=== PATIENT | female | born 1970 | race African-American/Black ===

== ENCOUNTER 2018-03-25 15:14 | Inpatient (IN) | payer OTHER ==
[~2018-03-25] VITALS: Ht 172.7 cm; Wt 127.9 kg
[~2018-03-25 15:14] MED LIST: ENAL5TAB20 PO; METO25TE PO; VICODIN PO
[2018-03-25 15:30] VITALS: BP 130/85
--- NOTE | 2018-03-25 15:32 | NUR ---
PT BROUGHT TO BED 11 AND EKG OBTAINED
[2018-03-25] MEDS ORDERED: MORPHINE SULFATE 4 MG/ML SYR IVP ONE (15:35)
[2018-03-25] MEDS ORDERED: NITROGLYCERIN 2% 1 GM PKT TP ONE (15:35)
[2018-03-25] MEDS ORDERED: ASPIRIN 325 MG TAB PO ONE (15:35)
--- NOTE | 2018-03-25 15:45 | NUR ---
PT C/O SOB AND FEELING OF ELEPHANT SITTING ON CHEST STARTING TODAY AT REST. 10/10 PAIN. PT HAS BEEN COUGH X 6 MOS. HX---HTN AND DM
[2018-03-25 15:55] LABS: BASOPHILS % (AUTO) 0.5 % (0.0-2.0); EOSINOPHILS # (AUTO) 0.2 K/uL (0-0.4); EOSINOPHILS % (AUTO) 4.8 % (0.0-4.0); HEMATOCRIT 40.8 % (36-48); HEMOGLOBIN 13.6 g/dL (12.0-16.0); LYMPHOCYTES # (AUTO) 0.9 K/uL (2.5-16.5); LYMPHOCYTES % (AUTO) 22.2 % (20.5-51.1); MEAN CORPUSCULAR HEMOGLOBIN 32 pg (27-31); MEAN CORPUSCULAR HGB CONC 33 g/dL (33-37); MEAN CORPUSCULAR VOLUME 95.2 fL (80-94); MONOCYTES # (AUTO) 0.2 K/uL (0.8-1.0); MONOCYTES % (AUTO) 5.2 % (1.7-9.3); NEUTROPHILS # (AUTO) 2.7 K/uL (1.8-7.7); NEUTROPHILS % (AUTO) 67.3 % (42.2-75.2); PLATELET COUNT (AUTO) 191 K/uL (140-450); RED BLOOD CELL COUNT(AUTO) 4.29 MIL/uL (4.20-5.40); RED CELL DISTRIBUTION WIDTH 12.6 % (11.6-13.7); WHITE BLOOD COUNT (AUTO) 4.1 K/uL (4.8-10.8)
[2018-03-25 16:04] LABS: ANION GAP 11.2 (8-16); CARBON DIOXIDE 29.3 mmol/L (21-32); CREATININE 0.8 mg/dL (0.6-1.3); POTASSIUM 3.5 mmol/L (3.5-5.1)
[2018-03-25 16:09] LABS: ALBUMIN 3.4 g/dL (3.4-5.0); TOTAL BILIRUBIN 0.4 mg/dL (0.0-1.0)
[2018-03-25 16:19] LABS: CHOL/HDL RATIO 2.7 (1-4.5)
--- NOTE | 2018-03-25 19:02 | NUR ---
pt taken off the unit via gurney for ct scan by eclectic doctor
--- NOTE | 2018-03-25 19:13 | NUR ---
REPORT GIVEN TO OSWALDO BUSTILLO
--- NOTE | 2018-03-25 19:26 | NUR ---
PT RETURNED FROM CT. NOTED WHEEZING NOTED THROUGHT WITH LABORED BREATHING SATS 94% ON 2LPM NC. ER MD MADE AWARE, AWAITING FOR ORDERS
[2018-03-25] MEDS ORDERED: ALBUTEROL 0.083% 2.5 MG/3 ML NEBU INH ONE (19:30)
[2018-03-25] MEDS ORDERED: ALBUTEROL SULFATE/IPRATROPIU 3 ML SOL IH ONE (19:45)
[2018-03-25] MEDS ORDERED: LEVOFLOXACIN 750 MG/D5W PREMIX 150 ML IV ONE (20:20)
--- NOTE | 2018-03-25 20:35 | NUR ---
PT REFUSES TO BE ADMITTED, DR GALLEGOS MADE AWARE. PT SIGNED AMA. PT REQUESTING TO STILL GET ANTIBIOTICS. LEVAQUIN CURRENTLY INFUSING.
--- NOTE | 2018-03-25 21:35 | NUR ---
PT STATES " I CAN STAY NOW, SOMEONE WILL TAKE CARE OF MY GRANDCHILDREN". DR GALLEGOS MADE AWARE
[2018-03-25] MEDS ORDERED: DOCUSATE SODIUM 100 MG GELCAP PO PRN (22:35)
[2018-03-25] MEDS ORDERED: ZOLPIDEM 5 MG TAB PO PRN (22:35)
[2018-03-25] MEDS ORDERED: ACETAMINOPHEN 325 MG TAB PO PRN (22:35)
[2018-03-25] MEDS ORDERED: ONDANSETRON 4 MG/2 ML VIAL IM/IVP PRN (22:35)
[2018-03-25] MEDS ORDERED: LORazepam 0.5 MG TAB PO PRN (22:35)
[2018-03-25 23:00] VITALS: BP 122/60
--- NOTE | 2018-03-25 23:00 | NUR ---
RECEIVED BEDSIDE REPORT FROM RN KENY, PATIENT AMBULATED FROM [facility] TO BEDSIDE, UNSTEADY GAIT, STATES SHE FEELS SOB. NOTED WHEEZING, CALL RT FOR BREATHING TX, PLACED PATIENT ON 2 L VIA NC, PLACED HOB AT 90 DEGREES, O2 SAT 90%, RR 22-26 LABORED AND DEEP. IV IN LEFT AC 20 G, SL, DRESSING INTACT, EXPLAINED PLAN OF CARE. UPDATED BOARD, CALL LIGHT WITHIN REACH, PLACED ON FALL PRECAUTIONS, BED ALARM ON. WILL CONTINUE TO MONITOR.
--- NOTE | 2018-03-25 23:00 | NUR ---
Patient will be admitted to care of SESAY. Admited to TELE . Will go to room 115A. Belongings list completed. Report to RAFAEL CHACON.
[2018-03-25] MEDS: ALBUTEROL SULFATE/IPRATROPIU 3 ML SOL IH PRN (23:09)
[2018-03-25 23:15] LABS: APPEARANCE,URINE CLEAR (CLEAR); BILIRUBIN,URINE NEGATIVE (NEGATIVE); BLOOD, URINE NEGATIVE (NEGATIVE); COLOR,URINE YELLOW (YELLOW); LEUKOCYTE ESTERASE ,URINE NEGATIVE (NEGATIVE); NITRITE, URINE NEGATIVE (NEGATIVE); UGLUCOSE NEGATIVE (NEGATIVE)
[2018-03-25 23:20] LABS: BARBITURATE, URINE NEG. ng/ml (NEG <=200); BENZODIAZEPINE, URINE NEG. ng/mL (NEG <=200); CANNABINOID, URINE NEG. ng/mL (NEG <=50); COCAINE, URINE POS. ng/mL (NEG <=300); OPIATE, URINE POS. ng/mL (NEG <=2000); PHENCYCLIDINE SCREEN,URINE NEG. ng/mL (NEG <=25)
[2018-03-25 23:21] LABS: FREE T4 (FREE THYROXINE) 1.13 ng/dL (0.76-1.46); MAGNESIUM 1.7 mg/dL (1.8-2.4); PHOSPHORUS 3.2 mg/dL (2.5-4.9); THYROID STIMULATING HORMONE 0.63 uIU/mL (0.34-3.74)
[2018-03-25] MEDS: NACL 0.9% 1,000 ML IV SCH (23:25)
--- NOTE | 2018-03-25 23:30 | NUR ---
MRSA SCREEN COLLECTED AND SENT TO LAB.
[2018-03-25] MEDS ORDERED: PROMETHAZINE DM 6.25/15MG-5ML ORASYR PO PRN (23:40)
[2018-03-25] MEDS ORDERED: FLUO20CA27 PO (23:59)
[2018-03-25] MEDS ORDERED: METF-988 PO (23:59)
[2018-03-25] MEDS ORDERED: QUET300T1 PO (23:59)
[2018-03-26] MEDS ORDERED: NICOTINE TRANSD SYS 21 MG/24 HR PATCH TD SCH
--- NOTE | 2018-03-26 | NUR ---
O2SAT 95% ON 2 L NC, RR 16. LUNGS ARE DIMINISHED. PATIENT C/O PAIN WILL MEDICATE ACCORDING TO MD ORDER.
[2018-03-26] MEDS: HYDROcodone/APAP 7.5/325 MG 1 TAB PO PRN ×2 (00:30→20:17)
--- NOTE | 2018-03-26 00:30 | NUR ---
MEDICATED ACCORDING TO MD ORDER WITH JOSE FOR LUEVANO. SPUTUM SAMPLE COLLECTED, OTHER SCHEDULED MEDICATIONS GIVEN, PATIENT TOLERATED WELL.
[2018-03-26] MEDS ORDERED: guaiFENesin DM 200/20 MG-10 ML 10 ML UDC PO PRN (00:40)
[2018-03-26] MEDS ORDERED: PNEUMOCOCCAL VACCINE 23 MCG/0.5 ML VIAL IMVAC PRN (00:40)
[2018-03-26] MEDS ORDERED: MAGNESIUM OXIDE 400 MG TAB PO SCH (01:00)
--- NOTE | 2018-03-26 01:31 | NUR ---
PATIENT HAS NOTED COUGH WILL MEDICATE WITH ROBITUSSIN.
--- NOTE | 2018-03-26 03:30 | NUR ---
PATIENT AMBULATED FROM BEDSIDE TO RESTROOM, UNSTEADY GAIT. ASSISTED BACK INTO BED.
[2018-03-26] MEDS ORDERED: DEXTROSE 50% 50 ML SYR IVP PRN (03:50)
[2018-03-26 04:00] VITALS: BP 128/66
--- NOTE | 2018-03-26 04:30 | NUR ---
V/S TAKEN ALL WITHIN BASELINE, PATIENT REQUESTED BREATHING TREATMENT, CALLED R/T, PATIENT RECEIVING BREATHING TREATMENT.
--- NOTE | 2018-03-26 04:30 | NUR ---
PT COMPLAINED OF SOB. PT HAD AUDIBLE WHEEZING. PRN BREATHING TX GIVEN. SEE NEB TX ASSESSMENT FOR DETAILS. WILL CONT TO MONITOR PT.
[2018-03-26] MEDS: ALBUTEROL SULFATE/IPRATROPIU 3 ML SOL IH PRN (04:31)
--- NOTE | 2018-03-26 05:16 | NUR ---
BLOOD GLUCOSE 130 NO COVERAGE NEEDED.
[2018-03-26] MEDS: BLOOD GLUCOSE MONITORING 1 DEV DEV FS SCH ×4 (06:27→20:15)
[2018-03-26] MEDS ORDERED: methylPREDNISolone SS 125 MG/2 ML VIAL IVP SCH (07:00)
--- NOTE | 2018-03-26 07:01 | NUR ---
CALLED PHARMACY TO VERIFY SCHEDULED SOLU-MEDROL, MEDICATED ACCORDING TO MD ORDER.
--- NOTE | 2018-03-26 07:10 | NUR ---
ENDORSED PATIENT TO DAY SHIFT NURSE JOSE MIGUEL PATIENT STABLE.
--- NOTE | 2018-03-26 07:11 | NUR ---
RECEIVED REPORT FROM MAINTENANCE PLANNER NURSE. PATIENT SITTING IN BED TALKING ON THE PHONE WITH FAMILY. NO DISTRESS NOTED. DENIES ANY PAIN. RESPIRATIONS EVEN, UNLABORED, ON O2 2L/MIN VIA NC. AAOX4, CALM, COOPERATIVE, SKIN COLOR APPROPRIATE TO ETHNICITY, WARM TO TOUCH. LUNGS WHEEZING ON ALL LOBES. IV SITE INTACT, PATENT, AND INFUSING IVF PER MD ORDERS. SKIN INTACT. REVIEWED PLAN OF CARE WITH PATIENT. PATIENT VERBALIZED UNDERSTANDING. SAFETY MEASURES IN PLACE, CALL LIGHT WITHIN REACH. WILL CONTINUE TO MONITOR.
[2018-03-26] MEDS: ALBUTEROL SULFATE/IPRATROPIU 3 ML SOL IH SCH ×3 (07:12→19:47)
[2018-03-26 08:00] VITALS: BP 134/83
[2018-03-26] MEDS: metFORMIN 500 MG TAB PO SCH ×2 (08:00→16:18)
[2018-03-26] MEDS: LACTOBACILLUS RHAMNOSUS GG 1 EACH CAP PO SCH (08:23)
[2018-03-26] MEDS: ENALAPRIL 10 MG TAB PO SCH (08:24)
[2018-03-26] MEDS: FLUoxetine 20 MG CAP PO SCH (08:24)
[2018-03-26] MEDS: NACL 0.9% 1,000 ML IV SCH ×2 (08:24→17:55)
--- NOTE | 2018-03-26 08:28 | NUR ---
SCHEDULED MEDICATIONS DUE GIVEN. METFORMIN NOT GIVEN AT THIS TIME DUE TO PATIENT HAVING CT ANGIOGRAM WITH DYE YESTERDAY 03/25/18 AT 1800. WILL CONTINUE TO MONITOR.
[2018-03-26] MEDS: NICOTINE TRANSD SYS 21 MG/24 HR PATCH TD SCH (08:36)
--- NOTE | 2018-03-26 10:30 | NUR ---
PATIENT SITTING IN BED ON THE PHONE WITH FAMILY MEMBER. CONDITION UNCHANGED. WILL CONTINUE TO MONITOR.
[2018-03-26 12:00] VITALS: BP 141/86
[2018-03-26] MEDS: INSULIN LISPRO SLIDING SCALE 100 UNITS/ML VIAL SUBQ PRN ×3 (12:15→20:18)
--- NOTE | 2018-03-26 12:30 | NUR ---
PATIENT SITTING IN BED WITH LUNCH TRAY IN FRONT. NO DISTRESS NOTED. DENIES ANY PAIN. WILL CONTINUE TO MONITOR.
[2018-03-26] MEDS: methylPREDNISolone SS 125 MG/2 ML VIAL IVP SCH ×2 (15:43→22:10)
--- NOTE | 2018-03-26 15:47 | NUR ---
PATIENT SITTING IN BED WATCHING TV. NO DISTRESS NOTED. CONDITION UNCHANGED. SCHEDULED MEDICATIONS DUE GIVEN. SAFETY MEASURES IN PLACE, CALL LIGHT WITHIN REACH. WILL CONTINUE TO MONITOR.
[2018-03-26 16:00] VITALS: BP 140/76
--- NOTE | 2018-03-26 16:19 | NUR ---
PATIENT SITTING IN BED TALKING WITH FRIENDS AT BEDSIDE. NO DISTRESS NOTED. DENIES ANY PAIN. SCHEDULED MEDICATIONS DUE GIVEN. WILL CONTINUE TO MONITOR.
--- NOTE | 2018-03-26 18:30 | NUR ---
PATIENT SITTING IN BED TALKING WITH FAMILY AT BEDSIDE. CONDITION UNCHANGED. WILL CONTINUE TO MONITOR.
--- NOTE | 2018-03-26 19:25 | NUR ---
GAVE REPORT TO WHITE HAT HACKER NURSE FOR CONTINUITY OF CARE. PATIENT IN STABLE CONDITION.
--- NOTE | 2018-03-26 19:26 | NUR ---
REPORT RECEIVED FROM AM NURSE AT BEDSIDE. PT IN STABLE CONDITION. AAOX4. NO COMPLAINTS OF PAIN. NO SOB. INTRODUCED SELF TO PT. BOARD UPDATED. IV SITE L AC 20G RUNNING NS@100ML/HR PATENT AND INTACT. SKIN WARM, DRY, AND INTACT WITH NO OPEN WOUNDS. PT ON 2L O2 VIA NC SATTING >92%. BED LOCKED IN LOW POSITION. CALL CHAVEZ WITHIN REACH. SAFETY PRECAUTIONS IN PLACE.
[2018-03-26 20:00] VITALS: BP 120/82
--- NOTE | 2018-03-26 20:16 | NUR ---
TRAZODONE, SEROQUEL, TOPROLOL, AND NORCO GIVEN PO. PT TOLERATED WELL. BS 198. 2 UNITS OF HUMALOG GIVEN.
[2018-03-26] MEDS ORDERED: METOPROLOL SUCCINATE 50 MG TABER PO SCH (21:00)
[2018-03-26] MEDS ORDERED: QUEtiapine FUMARATE 100 MG TAB PO SCH (21:00)
[2018-03-26] MEDS ORDERED: traZODone 50 MG TAB PO SCH (21:00)
--- NOTE | 2018-03-26 21:45 | NUR ---
PT IV LEAKING. L AC 20G D/C AT 2145. CANNULA INTACT. NEW IV STARTED L FA 22G. 1 ATTEMPT TAKEN. PT TOLERATED WELL.
--- NOTE | 2018-03-26 22:10 | NUR ---
SOLUMEDROL GIVEN IVP. PT TOLERATED WELL.
[2018-03-27] VITALS: BP 119/71
--- NOTE | 2018-03-27 00:15 | NUR ---
VS STABLE. PT ASLEEP BUT AROUSEABLE. NO S/S OF DISTRESS. NO COMPLAINTS OF PAIN. NO SOB. PT ON 2L VIA NC. WILL CONTINUE TO MONITOR.
[2018-03-27 04:00] VITALS: BP 107/64
--- NOTE | 2018-03-27 05:20 | NUR ---
PT HAS COMPLAINTS OF ARM PAIN. IV INFILTRATED AND ARM IS SWOLLEN. IV L FA 20G DC. CANNULA INTACT.
--- NOTE | 2018-03-27 05:50 | NUR ---
NOTIFIED OF PT'S IV INFILTRATION AND SWOLLEN ARM. MD SAID WILL CHANGE ORDERS TO PO SOLUMEDROL AND WILL D/C FLUIDS. AWAITING NEW ORDERS.
[2018-03-27] MEDS: BLOOD GLUCOSE MONITORING 1 DEV DEV FS SCH (06:21)
[2018-03-27] MEDS: INSULIN LISPRO SLIDING SCALE 100 UNITS/ML VIAL SUBQ PRN (06:22)
--- NOTE | 2018-03-27 06:22 | NUR ---
BS 276. 6 UNITS OF HUMALOG GIVEN. PT TOLERATED WELL.
[2018-03-27] MEDS: ALBUTEROL SULFATE/IPRATROPIU 3 ML SOL IH SCH (06:59)
[2018-03-27] MEDS: methylPREDNISolone SS 125 MG/2 ML VIAL IVP SCH (07:00)
--- NOTE | 2018-03-27 07:10 | NUR ---
REPORT GIVEN TO AM NURSE AT BEDSIDE. PT IN STABLE CONDITION.
[2018-03-27 07:11] LABS: BASOPHILS % (AUTO) 0.1 % (0.0-2.0); HEMATOCRIT 40.7 % (36-48); HEMOGLOBIN 13.8 g/dL (12.0-16.0); LYMPHOCYTES # (AUTO) 0.7 K/uL (2.5-16.5); LYMPHOCYTES % (AUTO) 8.2 % (20.5-51.1); MEAN CORPUSCULAR HEMOGLOBIN 32 pg (27-31); MEAN CORPUSCULAR HGB CONC 34 g/dL (33-37); MEAN CORPUSCULAR VOLUME 94.8 fL (80-94); MONOCYTES # (AUTO) 0.2 K/uL (0.8-1.0); MONOCYTES % (AUTO) 2.2 % (1.7-9.3); NEUTROPHILS # (AUTO) 7.9 K/uL (1.8-7.7); NEUTROPHILS % (AUTO) 89.5 % (42.2-75.2); PLATELET COUNT (AUTO) 201 K/uL (140-450); RED BLOOD CELL COUNT(AUTO) 4.29 MIL/uL (4.20-5.40); RED CELL DISTRIBUTION WIDTH 12.3 % (11.6-13.7); WHITE BLOOD COUNT (AUTO) 8.8 K/uL (4.8-10.8)
--- NOTE | 2018-03-27 07:11 | NUR ---
RECEIVED BEDSIDE REPORT FROM ROUTE SALES TRAINEE NURSE. PATIENT AAOX4. CALL LIGHT WITHIN REACH. WILL CONTINUE TO MONITOR.
[2018-03-27 07:51] LABS: MAGNESIUM 1.9 mg/dL (1.8-2.4); PHOSPHORUS 3.8 mg/dL (2.5-4.9)
[2018-03-27 08:00] VITALS: BP 139/57
[2018-03-27] MEDS ORDERED: PRED20TA5 PO ×3 (08:20)
[2018-03-27] MEDS: FLUoxetine 20 MG CAP PO SCH (08:32)
[2018-03-27] MEDS: ENALAPRIL 10 MG TAB PO SCH (08:33)
[2018-03-27] MEDS: LACTOBACILLUS RHAMNOSUS GG 1 EACH CAP PO SCH (08:34)
[2018-03-27] MEDS: NICOTINE TRANSD SYS 21 MG/24 HR PATCH TD SCH (08:34)
[2018-03-27] MEDS: metFORMIN 500 MG TAB PO SCH (08:45)
[2018-03-27] MEDS ORDERED: PRON INH (08:46)
[2018-03-27] MEDS ORDERED: predniSONE 20 MG TAB PO SCH ×2 (09:00)
[2018-03-27 09:51] LABS: CARBON DIOXIDE 23.2 mmol/L (21-32); POTASSIUM 4.2 mmol/L (3.5-5.1)
--- NOTE | 2018-03-27 09:59 | NUR ---
PATIENT HAS BEEN SCREENED AND CATEGORIZED HIGH NUTRITION RISK. PATIENT WILL BE SEEN WITHIN 1-2 DAYS OF ADMISSION. 03/26/18-03/28/[address]
--- NOTE | 2018-03-27 11:30 | NUR ---
WRITTEN AND VERBAL DISCHARGE INSTRUCTIONS GIVEN TO PATIENT. VERBALIZED UNDERSTANDING. PER PATIENT SON WILL COME TO PICK HER UP. NO COMPLAINTS OF PAIN. RESPIRATIONS EVEN AND UNLABORED.
--- NOTE | 2018-03-27 12:00 | NUR ---
PATIENT DISCHARGED AT THIS TIME AND AMBULATED OFF UNIT WITH STEADY GAIT, ACCOMPANIED BY SON AND ALL BELONGINGS WITH PATIENT. NAME BAND REMOVED.
[2018-03-27] MEDS ORDERED: methylPREDNISolone SS 40 MG/ML VIAL IVP SCH (13:00)
[2018-03-28 06:25] LABS: T4 (THYROXINE) 9.8 ug/dL (4.5-12.0)
== END 2018-03-27 12:00 | disposition home or self-care (01) | DRG 140 ==
LOC: MED 15:14 → MTU 22:36
PROVIDERS: ADMIT General Practice; ATTEND General Practice
PROC: 3E0234Z Introduction of Serum, Toxoid and Vaccine into Muscle, Percutaneous Approach (ICD-10-PCS; principal; 2018-03-26)
DX: J44.1 Chronic obstructive pulmonary disease with (acute) exacerbation (principal); E11.65 Type 2 diabetes mellitus with hyperglycemia; E66.01 Morbid (severe) obesity due to excess calories; E83.42 Hypomagnesemia; I10 Essential (primary) hypertension; Z68.41 Body mass index [BMI] 40.0-44.9, adult; Z71.3 Dietary counseling and surveillance; F14.19 Cocaine abuse with unspecified cocaine-induced disorder; M81.0 Age-related osteoporosis without current pathological fracture; M06.9 Rheumatoid arthritis, unspecified; I20.9 Angina pectoris, unspecified; F32.9 Major depressive disorder, single episode, unspecified; F41.9 Anxiety disorder, unspecified; G47.00 Insomnia, unspecified; Z87.891 Personal history of nicotine dependence; Z23 Encounter for immunization
CPT/HCPCS: 36415; 36600; 71045; 71275; 80048; 80053; 80305; 81003; 82150; 82550; 82553; 82803; 82948; 83036; 83690; 83735; 83880; 84100; 84436; 84439; 84443; 84479; 84484; 85025; 85379; 85610; 85730; 87040; 87081; 87205; 89220; 90732; 94640; 96365; 96366; 96375; 99291; J1815; J1956; J2270; J2930; J7030; J7512; J7613; J7620; Q0092; Q9967

== ENCOUNTER 2021-07-11 00:24 | Emergency (ER) | payer OTHER ==
[~2021-07-11] VITALS: Ht 177.8 cm; Wt 113.4 kg
[~2021-07-11 00:24] MED LIST changes: -ENAL5TAB20 PO; +ENAL5TAB34 PO; +FLUO20CA27 PO; +METF-1243 PO; +PRED20TA5 PO; +PRON INH; +QUET300T1 PO; -VICODIN PO
[2021-07-11 00:40] VITALS: BP 150/98
--- NOTE | 2021-07-11 00:43 | NUR ---
TO LOBBY A/W BED AMBULATORY
[2021-07-11] MEDS ORDERED: NAPR-54 PO (02:49)
[2021-07-11] MEDS ORDERED: OXYC5CAP26 PO (02:49)
[2021-07-11] MEDS ORDERED: ONDANSETRON 4 MG ODT PO ONE (02:50)
[2021-07-11] MEDS ORDERED: MORPHINE SULFATE 4 MG/ML SYR IM ONE (02:50)
[2021-07-11 03:30] VITALS: BP 150/98
--- NOTE | 2021-07-11 03:30 | NUR ---
Patient discharged with v/s stable. Written and verbal after care instructions given and explained. Patient alert, oriented and verbalized understanding of instructions. Ambulatory with steady gait. All questions addressed prior to discharge. ID band removed. Patient advised to follow up with PMD. Rx of NAPROSYN AND OXYCODONE given. Patient educated on indication of medication including possible reaction and side effects. Opportunity to ask questions provided and answered.
== END 2021-07-11 03:30 | disposition home or self-care (01) ==
LOC: MED 00:24
DX: M51.26 Other intervertebral disc displacement, lumbar region (principal); E11.9 Type 2 diabetes mellitus without complications; I10 Essential (primary) hypertension; Z79.899 Other long term (current) drug therapy; Z98.890 Other specified postprocedural states; Z79.84 Long term (current) use of oral hypoglycemic drugs
CPT/HCPCS: 96372; 99283; J2270; Q0162

== ENCOUNTER 2022-01-23 08:38 | Emergency (ER) | payer OTHER ==
[~2022-01-23] VITALS: Ht 175.3 cm; Wt 106.1 kg
[~2022-01-23 08:38] MED LIST changes: +NAPR-54 PO; +OXYC5CAP26 PO
[2022-01-23 08:49] VITALS: BP 144/93
--- NOTE | 2022-01-23 08:54 | NUR ---
PT AMB TO BED 9.
[2022-01-23 08:56] VITALS: BP 144/93
[2022-01-23] MEDS ORDERED: ACETAMINOPHEN 325 MG TAB PO ONE (09:15)
[2022-01-23] MEDS ORDERED: ALBUTEROL SULFATE/IPRATROPIU 3 ML SOL IH ONE (09:20)
[2022-01-23] MEDS ORDERED: DEXAMETHASONE 10 MG/ML VIAL PO ONE (09:20)
[2022-01-23] MEDS ORDERED: NACL 0.9% 1,000 ML IV ONE (09:25)
[2022-01-23 10:13] LABS: BASOPHILS % (AUTO) 0.7 % (0.0-2.0); EOSINOPHILS # (AUTO) 0.1 K/uL (0-0.4); EOSINOPHILS % (AUTO) 1.7 % (0.0-4.0); HEMATOCRIT 39.2 % (36-48); HEMOGLOBIN 13.3 g/dL (12.0-16.0); LYMPHOCYTES # (AUTO) 1.7 K/uL (2.5-16.5); LYMPHOCYTES % (AUTO) 42.8 % (20.5-51.1); MEAN CORPUSCULAR HEMOGLOBIN 32 pg (27-31); MEAN CORPUSCULAR HGB CONC 34 g/dL (33-37); MEAN CORPUSCULAR VOLUME 92.9 fL (80-94); MONOCYTES # (AUTO) 0.5 K/uL (0.8-1.0); MONOCYTES % (AUTO) 11.2 % (1.7-9.3); NEUTROPHILS # (AUTO) 1.8 K/uL (1.8-7.7); NEUTROPHILS % (AUTO) 43.6 % (42.2-75.2); PLATELET COUNT (AUTO) 251 K/uL (140-450); RED BLOOD CELL COUNT(AUTO) 4.21 MIL/uL (4.20-5.40); RED CELL DISTRIBUTION WIDTH 12.5 % (11.6-13.7); WHITE BLOOD COUNT (AUTO) 4.1 K/uL (4.8-10.8)
[2022-01-23 10:28] LABS: ALBUMIN 3.3 g/dL (3.4-5.0); ANION GAP 13.3 (8-16); CARBON DIOXIDE 28.2 mmol/L (21-32); CREATININE 0.7 mg/dL (0.6-1.3); POTASSIUM 3.5 mmol/L (3.5-5.1); TOTAL BILIRUBIN 0.3 mg/dL (0.0-1.0)
[2022-01-23] MEDS ORDERED: PRON INH (11:09)
--- NOTE | 2022-01-23 11:21 | NUR ---
Patient discharged with v/s stable. Written and verbal after care instructions ABOUT COPD, GENERAL HEADACHE WITHOUT CAUSE AND COUGH given and explained. Patient alert, oriented and verbalized understanding of instructions. Ambulatory with steady gait. All questions addressed prior to discharge. ID band removed. Patient advised to follow up with PMD. Rx of ALBUTEROL SULFATE given. Patient educated on indication of medication including possible reaction and side effects. Opportunity to ask questions provided and answered.
== END 2022-01-23 11:21 | disposition home or self-care (01) ==
LOC: MED 08:38
DX: J44.1 Chronic obstructive pulmonary disease with (acute) exacerbation (principal); R51.9 Headache, unspecified; E11.9 Type 2 diabetes mellitus without complications; I10 Essential (primary) hypertension; F17.200 Nicotine dependence, unspecified, uncomplicated; Z79.899 Other long term (current) drug therapy; Z79.1 Long term (current) use of non-steroidal anti-inflammatories (NSAID); Z79.891 Long term (current) use of opiate analgesic
CPT/HCPCS: 36415; 71045; 80053; 83880; 84484; 85025; 93005; 94640; 99285; J1100

== ENCOUNTER 2022-06-19 15:07 | Emergency (ER) | payer OTHER ==
[~2022-06-19] VITALS: Ht 175.3 cm; Wt 107.7 kg
[~2022-06-19 15:07] MED LIST changes: +ENAL-270 PO; -ENAL5TAB34 PO
[2022-06-19 15:14] VITALS: BP 167/99
--- NOTE | 2022-06-19 15:25 | NUR ---
BIB FAMILY C/O 02/08 RIGHT SHOULDER PAIN, SPASM RADIATING TO RIGHT ARM X 2 DAYS. DENIES TRAUMA RECENTLY. BLOOD SUGAR 146 AT THIS TIME. PMH: DM, HTN,GOUT
[2022-06-19] MEDS ORDERED: KETOROLAC 30 MG/ML VIAL IM ONE (15:40)
[2022-06-19] MEDS ORDERED: CAPS1ADH5 TP (15:44)
[2022-06-19] MEDS ORDERED: NAPR-1704 PO (15:44)
--- NOTE | 2022-06-19 15:55 | NUR ---
Patient discharged with v/s stable. Written and verbal after care instructions given and explained. Patient alert, oriented and verbalized understanding of instructions. Ambulatory with steady gait. All questions addressed prior to discharge. ID band removed. Patient advised to follow up with PMD. Rx of capsaicin/menthol, naproxen (sent) given. Patient educated on indication of medication including possible reaction and side effects. Opportunity to ask questions provided and answered.
[2022-06-19 15:56] VITALS: BP 167/99
== END 2022-06-19 15:56 | disposition home or self-care (01) ==
LOC: MED 15:07
DX: S46.911A Strain of unspecified muscle, fascia and tendon at shoulder and upper arm level, right arm, initial encounter (principal); S16.1XXA Strain of muscle, fascia and tendon at neck level, initial encounter; E11.9 Type 2 diabetes mellitus without complications; I10 Essential (primary) hypertension; Z79.899 Other long term (current) drug therapy; Z79.1 Long term (current) use of non-steroidal anti-inflammatories (NSAID); Z79.891 Long term (current) use of opiate analgesic; X58.XXXA Exposure to other specified factors, initial encounter; Y93.B9 Activity, other involving muscle strengthening exercises; Y92.89 Other specified places as the place of occurrence of the external cause; Y99.8 Other external cause status
CPT/HCPCS: 82948; 96372; 99283; J1885

== ENCOUNTER 2022-06-27 19:59 | Emergency (ER) | payer OTHER ==
[~2022-06-27] VITALS: Ht 175.3 cm; Wt 107.5 kg
[~2022-06-27 19:59] MED LIST changes: +CAPS1ADH5 TP; +NAPR-1704 PO
[2022-06-27 20:06] VITALS: BP 132/80
--- NOTE | 2022-06-27 20:11 | NUR ---
STAT EKG in triage room
[2022-06-27 20:15] VITALS: BP 132/80
--- NOTE | 2022-06-27 21:05 | NUR ---
pt called by Dr. Acosta with no answer.
--- NOTE | 2022-06-27 21:45 | NUR ---
pt called by Dr. Acosta with no answer. pt lwbs
== END 2022-06-27 21:45 | disposition left against medical advice (07) ==
LOC: MED 19:59
DX: M25.511 Pain in right shoulder (principal); Z53.21 Procedure and treatment not carried out due to patient leaving prior to being seen by health care provider

== ENCOUNTER 2023-07-06 07:50 | Emergency (ER) | payer OTHER ==
[~2023-07-06] VITALS: Ht 175.3 cm; Wt 111.1 kg
[2023-07-06 07:58] VITALS: BP 159/99; PULSE 94; RESP 18; TEMP 98.3; O2SAT 99
[2023-07-06 10:43] VITALS: BP 159/99; PULSE 94; RESP 18; TEMP 98.3; O2SAT 99
== END 2023-07-06 10:43 | disposition home or self-care (01) ==
LOC: MED 07:50
DX: R60.9 Edema, unspecified (principal); J44.9 Chronic obstructive pulmonary disease, unspecified; I10 Essential (primary) hypertension; E11.9 Type 2 diabetes mellitus without complications; Z79.4 Long term (current) use of insulin; Z79.899 Other long term (current) drug therapy
CPT/HCPCS: 93971; 99284; Q0092

== ENCOUNTER 2023-07-23 00:37 | Emergency (ER) | payer OTHER ==
[~2023-07-23] VITALS: Ht 172.7 cm; Wt 115.7 kg
[2023-07-23 01:14] VITALS: BP 130/93; PULSE 108; RESP 16; TEMP 97.4; O2SAT 100
[2023-07-23] MEDS ORDERED: cefTRIAXone 1,000 MG VIAL ONE (02:42)
[2023-07-23] MEDS ORDERED: LIDOCAINE MPF 1% 5 ML ONE (02:43)
[2023-07-23] MEDS: KETOROLAC 60 MG/2 ML VIAL IM ONE (02:47)
[2023-07-23] MEDS: cefTRIAXone 1,000 MG in LIDOCAINE MPF 1% 2.1 ML IM ONE (02:50)
[2023-07-23] MEDS ORDERED: CEPH-588 PO (03:27)
[2023-07-23 03:33] VITALS: BP 134/85; PULSE 86; RESP 18; TEMP 98; O2SAT 98
== END 2023-07-23 03:33 | disposition home or self-care (01) ==
LOC: MED 00:37
DX: L03.116 Cellulitis of left lower limb (principal); I10 Essential (primary) hypertension; E11.9 Type 2 diabetes mellitus without complications; J44.9 Chronic obstructive pulmonary disease, unspecified; Z96.653 Presence of artificial knee joint, bilateral; Z79.1 Long term (current) use of non-steroidal anti-inflammatories (NSAID); Z79.899 Other long term (current) drug therapy
CPT/HCPCS: 96372; 99284; J0696; J1885; J2001